=== PATIENT | male | born 1990 | race Caucasian/White ===

== ENCOUNTER 2017-08-08 13:49 | Emergency (ER) | payer BC ==
[2017-08-08 13:57] VITALS: BP 154/100
[2017-08-08] MEDS ORDERED: TDAP ADULT 0.5 ML INJ (BOOSTRIX) IM ONE (14:16)
--- NOTE | 2017-08-08 14:29 | EDPHY ---
H & P Time Seen by Provider: 08/08/17 14:09 HPI/ROS: CHIEF COMPLAINT: Leg laceration HISTORY OF PRESENT ILLNESS: The patient is a 26-year-old male who struck his right leg with an Axe while chopping wood. He sustained a laceration to his lower leg. He ambulates without difficulty. Bleeding is controlled. No numbness or tingling. REVIEW OF SYSTEMS: Negative Past Medical/Surgical History: Negative Smoking Status: Current every day smoker Physical Exam: Vitals noted General Appearance: Alert and no distress. Head: Pupils equal. Normal. Respiratory: No respiratory distress. Cardiac: regular rate and rhythm. Extremities: Right lower extremity laceration. There is a crescent shaped 3 cm laceration at the distal tibia anteriorly. No visible muscle injury. Patient has full range of motion with normal sensation. Skin: No rashes or lesions. Neuro: Alert. Normal mood and affect. Constitutional: Initial Vital Signs Temperature (C) 36.4 C 08/08/17 13:55 Heart Rate 81 08/08/17 13:55 Respiratory Rate 16 08/08/17 13:55 Blood Pressure 154/100 H 08/08/17 13:55 O2 Sat (%) 97 08/08/17 13:55 O2 Delivery Mode Room Air Allergies/Adverse Reactions: No Known Allergies Allergy (Unverified 08/08/17 13:58) Home Medications: Medication Instructions Recorded NK [No Known Home Meds] 08/08/17 Medical Decision Making ED Course/Re-evaluation: In the emergency department I discussed possible etiologies with the patient. He consented to have his wound repaired. Procedure: Laceration repair. Verbal consent was obtained from the patient. The 3 cm laceration on the right lower leg was anesthetized in the usual fashion. The wound was irrigated, draped and explored to its base with a gloved finger. There were no deep structures involved. No tendon injury was identified. The wound was repaired with 4 0 nylon. The wound repair was simple. The procedure was performed by myself. The patient was given warnings prior to leaving. He was given wound care instructions. Differential Diagnosis: My differential includes but is not limited to laceration, ligament injury, tendon injury, muscle injury, foreign body - Data Points Medications Given: Discontinued Medications Diphtheria/Tetanus/Acell Pertussis (Boostrix) 0.5 ml IM .ONCE ONE Stop: 08/08/17 14:17 Last Admin: 08/08/17 14:24 Dose: 0.5 ml Departure - Departure Disposition: Home, Routine, Self-Care Clinical Impression: Laceration Condition: Good Instructions: Laceration (ED), Care For Your Stitches (ED) Additional Instructions: You should have your stitches removed 90 10 days. Come to the emergency department to have your sutures removed. Referrals: [facility],. [Clinic] - As per Instructions
== END 2017-08-08 14:49 | disposition home or self-care (01) ==
PROC: 0HQKXZZ Repair Right Lower Leg Skin, External Approach (ICD-10-PCS; principal; 2017-08-08)
DX: S81.811A Laceration without foreign body, right lower leg, initial encounter (principal); F17.200 Nicotine dependence, unspecified, uncomplicated; Z23 Encounter for immunization; W27.0XXA Contact with workbench tool, initial encounter; Y99.8 Other external cause status; Y93.89 Activity, other specified